=== PATIENT | female | born 1995 | race Caucasian/White ===

== ENCOUNTER 2016-10-26 01:24 | Emergency (ER) | payer BC ==
[2016-10-26] MEDS ORDERED: ONDANSETRON 4 MG VIAL ONE (02:36)
[2016-10-26] MEDS ORDERED: SODIUM CHLORIDE 0.9% 1,000 ML ONE (02:36)
== END 2016-10-26 04:19 | disposition home or self-care (01) ==
LOC: ER 01:24
DX: R11.2 Nausea with vomiting, unspecified (principal); R19.7 Diarrhea, unspecified; J00 Acute nasopharyngitis [common cold]
CPT/HCPCS: 36415; 80053; 81003; 83690; 84703; 85025; 87804; 96361; 96374